=== PATIENT | male | born 1955 | race Caucasian/White ===

== ENCOUNTER → 2019-08-09 | Outpatient (CLI) | payer BC, MEDICARE ==
--- NOTE | 2019-08-09 16:06 | KCIC ---
Examination: Bilateral Lower Extremity Venous Doppler Ultrasound History: Right leg edema Comparison: None Procedure: Snow scale, color flow 2D and spectal waveform analysis images are obtained with and without compression in the area of the common femoral vein, superficial femoral vein - femoral vein junction, main femoral vein (superficial femoral vein) and popliteal vein. Veins of the proximal calf are also imaged. Findings: There is normal duplex flow, color flow and compressibility of all visualized vein segments. No evidence of deep venous thrombus is present. The bilateral peroneal veins are not well-visualized. Impression: No evidence of DVT in the visualized lower extremity venous system. Electronically signed by: Seng Carson MD (08/09/2019 4:03 PM) [id number]
--- NOTE | 2019-08-10 08:51 | KCIC ---
PROCEDURE: KUB STUDY DATE: 08/09/2019 CLINICAL INDICATION / HISTORY: MRI screening for foreign body.. TECHNIQUE: Single AP image of the abdomen was obtained. COMPARISON: None available. FINDINGS: The lung bases are clear. A retained catheter is present in the left abdomen and extending cephalad into the spinal canal to terminate at the T10-11 level. There are surgical clips in the left-sided pelvis near the lumbosacral junction and interbody prostheses at L4-L5 and L5-S1. No acute osseous abnormality. No organomegaly or pathologic calcifications identified. IMPRESSION: Patient has a retained catheter in the central canal of the thoracolumbar spine and there are surgical changes from previous lumbar surgery with interbody prostheses at L4-L5 and L5-S1 as described. Electronically signed by: Cher Harley MD (08/10/2019 8:48 AM) [facility]
== END ==
LOC: KCIC MRI 14:54
PROVIDERS: ATTEND Psychiatry & Neurology Neurology with Special Qualifications in Child Neurology
DX: Z13.89 Encounter for screening for other disorder (principal); R60.0 Localized edema
CPT/HCPCS: 74018; 93970